=== PATIENT | male | born 1945 | race Caucasian/White ===

== ENCOUNTER 2017-05-03 11:18 | Inpatient (IN) | payer MEDICARE ==
[~2017-05-03] VITALS: Ht 182.9 cm; Wt 70.5 kg
[2017-05-03 11:49] LABS: BASOPHIL 0.2 % (0-2); EOSINOPHIL 0.3 % (0-7); HCT 32.7 % (42.0-52.0); HGB 10.8 g/dl (13.2-18.0); LYMPHOCYTE 8.4 % (15-48); MCH 34.6 pg (25.0-31.0); MCV 104.8 fL (78.0-100.0); MONOCYTE 9.5 % (0-12); PLT 150 K/uL (150-400); RBC 3.12 M/uL (4.70-6.00); RDW 15.7 % (11.5-14.0); WBC 9.1 K/uL (4.0-10.5)
[2017-05-03 12:05] LABS: ALBUMIN 3.5 g/dL (3.4-4.8); BILIRUBIN - TOTAL 0.3 mg/dL (0.1-1.0); CREATININE 3.2 mg/dL (0.7-1.2); GLOBULIN (CALCULATION) 2.7 g/dL (2.2-4.2); POTASSIUM 4.4 mmol/L (3.5-5.1); TOTAL PROTEIN 6.2 g/dL (6.4-8.3); TROPONIN T 0.097 ng/mL
[2017-05-03 12:16] LABS: NEUTROPHIL 81.6 % (41-80)
[2017-05-03 13:11] LABS: BILIRUBIN NEGATIVE (NEGATIVE); BLOOD 1+ Ery/uL (NEGATIVE); CLARITY CLEAR (CLEAR); COLOR YELLOW (YELLOW); GLUCOSE (U) 2+ mg/dL (NORMAL); KETONE (U) NEGATIVE (NEGATIVE); LEUKOCYTES NEGATIVE Leu/uL (NEGATIVE); NITRITE NEGATIVE (NEGATIVE); PROTEIN 1+ mg/dL (NEGATIVE); SPECIFIC GRAVITY 1.015 (1.001-1.030); UROBILINOGEN 0.2 mg/dL (0.2-1.0)
[2017-05-03 17:25] LABS: URINE CREATININE 31.3 mg/dL (40-278); URINE TOTAL PROTEIN-RANDOM 47.9 mg/dL
[2017-05-03 17:35] LABS: CREATININE 3.3 mg/dL (0.7-1.2); MAGNESIUM 0.72 mg/dL (1.40-2.10); PHOSPHORUS 11.7 mg/dL (2.7-4.5); POTASSIUM 4.3 mmol/L (3.5-5.1)
[2017-05-03 17:45] LABS: FT4 (FREE T4) 0.829 ng/dL (0.93-1.70); TSH (THYROID STIM HORMONE) 5.8 uIU/mL (0.270-4.200)
[2017-05-03 17:56] LABS: URINE POTASSIUM 11.15 mmol/L
[2017-05-03 17:56] LABS: FOLIC ACID (SERUM) > 20.0 ng/mL (5.6-45.8)
[2017-05-04 04:15] LABS: BASOPHIL 0.2 % (0-2); HCT 29.7 % (42.0-52.0); HGB 9.8 g/dl (13.2-18.0); LYMPHOCYTE 10.6 % (15-48); MCV 103.1 fL (78.0-100.0); MONOCYTE 11.3 % (0-12); MPV 10.6 fL (6.0-9.5); NEUTROPHIL 75.9 % (41-80); PLT 145 K/uL (150-400); RBC 2.88 M/uL (4.70-6.00); RDW 15.3 % (11.5-14.0)
[2017-05-04 04:46] LABS: CREATININE 3.5 mg/dL (0.7-1.2); MAGNESIUM 0.91 mg/dL (1.40-2.10); PHOSPHORUS 11.9 mg/dL (2.7-4.5); POTASSIUM 3.8 mmol/L (3.5-5.1)
[2017-05-05 03:59] LABS: HCT 30.4 % (42.0-52.0); HGB 10.2 g/dl (13.2-18.0); MCH 34.1 pg (25.0-31.0); MCHC 33.6 g/dL (32.0-36.0); MCV 101.7 fL (78.0-100.0); MPV 10.4 fL (6.0-9.5); RBC 2.99 M/uL (4.70-6.00); RDW 15.2 % (11.5-14.0); WBC 8.7 K/uL (4.0-10.5)
[2017-05-05 04:17] LABS: ALBUMIN 3.2 g/dL (3.4-4.8); BILIRUBIN - TOTAL 0.4 mg/dL (0.1-1.0); CREATININE 3.7 mg/dL (0.7-1.2); GLOBULIN (CALCULATION) 1.9 g/dL (2.2-4.2); MAGNESIUM 1.12 mg/dL (1.40-2.10); PHOSPHORUS 10.8 mg/dL (2.7-4.5); POTASSIUM 3.4 mmol/L (3.5-5.1); TOTAL PROTEIN 5.1 g/dL (6.4-8.3)
[2017-05-05 06:32] LABS: BILIRUBIN NEGATIVE (NEGATIVE); BLOOD 1+ Ery/uL (NEGATIVE); CLARITY CLEAR (CLEAR); COLOR YELLOW (YELLOW); GLUCOSE (U) NORMAL (NORMAL); KETONE (U) NEGATIVE (NEGATIVE); LEUKOCYTES NEGATIVE Leu/uL (NEGATIVE); NITRITE NEGATIVE (NEGATIVE); PROTEIN 2+ mg/dL (NEGATIVE); UROBILINOGEN 0.2 mg/dL (0.2-1.0)
[2017-05-06 03:37] LABS: HCT 28.1 % (42.0-52.0); HGB 9.2 g/dl (13.2-18.0); MCH 33.6 pg (25.0-31.0); MCHC 32.7 g/dL (32.0-36.0); MCV 102.6 fL (78.0-100.0); MPV 10.5 fL (6.0-9.5); RBC 2.74 M/uL (4.70-6.00); RDW 15.1 % (11.5-14.0); WBC 8.2 K/uL (4.0-10.5)
[2017-05-06 03:56] LABS: CREATININE 3.4 mg/dL (0.7-1.2); MAGNESIUM 1.36 mg/dL (1.40-2.10); PHOSPHORUS 9.8 mg/dL (2.7-4.5); POTASSIUM 3.1 mmol/L (3.5-5.1)
[2017-05-07 04:00] LABS: BASOPHIL 0.1 % (0-2); EOSINOPHIL 1.6 % (0-7); HCT 27.3 % (42.0-52.0); HGB 8.8 g/dl (13.2-18.0); LYMPHOCYTE 7.8 % (15-48); MCH 33.6 pg (25.0-31.0); MCHC 32.2 g/dL (32.0-36.0); MCV 104.2 fL (78.0-100.0); MONOCYTE 10.1 % (0-12); MPV 10.8 fL (6.0-9.5); NEUTROPHIL 80.4 % (41-80); PLT 146 K/uL (150-400); RBC 2.62 M/uL (4.70-6.00); RDW 14.9 % (11.5-14.0); WBC 7.4 K/uL (4.0-10.5)
[2017-05-07 04:16] LABS: ALBUMIN 2.6 g/dL (3.4-4.8); BILIRUBIN - TOTAL 0.4 mg/dL (0.1-1.0); CREATININE 3.1 mg/dL (0.7-1.2); GLOBULIN (CALCULATION) 2.4 g/dL (2.2-4.2); MAGNESIUM 1.56 mg/dL (1.40-2.10); PHOSPHORUS 8.9 mg/dL (2.7-4.5); POTASSIUM 3.7 mmol/L (3.5-5.1); TROPONIN T 0.119 ng/mL
[2017-05-08 06:35] LABS: POTASSIUM 3.6 mmol/L (3.5-5.1)
[2017-05-08] MEDS ORDERED: SODIUM BICARBO650 M1 PO (15:52)
[2017-05-08] MEDS ORDERED: FLOMAX 0.4 MG0.4 MG PO (16:23)
[2017-05-08] MEDS ORDERED: VITAMIN D50000 UNIT PO (16:23)
== END 2017-05-08 17:56 | disposition home or self-care (01) | DRG 683 ==
LOC: FER 11:18 → FTCU 14:39 → FMS 05-07 15:06
PROVIDERS: Emergency Medicine; Internal Medicine Nephrology; ADMIT Internal Medicine
DX: N17.9 Acute kidney failure, unspecified (principal); E87.2 Acidosis; E11.22 Type 2 diabetes mellitus with diabetic chronic kidney disease; I48.91 Unspecified atrial fibrillation; D64.9 Anemia, unspecified; I12.9 Hypertensive chronic kidney disease with stage 1 through stage 4 chronic kidney disease, or unspecified chronic kidney disease; N18.4 Chronic kidney disease, stage 4 (severe); E83.39 Other disorders of phosphorus metabolism; E83.42 Hypomagnesemia; E83.51 Hypocalcemia; J45.909 Unspecified asthma, uncomplicated; E78.5 Hyperlipidemia, unspecified; F17.210 Nicotine dependence, cigarettes, uncomplicated; R80.9 Proteinuria, unspecified; E55.9 Vitamin D deficiency, unspecified; N40.0 Benign prostatic hyperplasia without lower urinary tract symptoms; K59.00 Constipation, unspecified
CPT/HCPCS: 36415; 36600; 71010; 71020; 71250; 72128; 72146; 76770; 80048; 80053; 81001; 81003; 82009; 82306; 82570; 82607; 82728; 82746; 82803; 82962; 83036; 83520; 83540; 83550; 83605; 83690; 83735; 83880; 83970; 84100; 84133; 84145; 84152; 84156; 84300; 84439; 84443; 84484; 85025; 85044; 86021; 86038; 86334; 86335; 89190; 93005; 94010; 94640; 94667; 94668; 97116; 97162; 97165; 97530; 97535; J0610; J1940; J2916; J3420; J3475; J7060

== ENCOUNTER 2017-05-12 20:22 | Inpatient (IN) | payer MEDICARE ==
[~2017-05-12] VITALS: Ht 182.9 cm; Wt 69.9 kg
[~2017-05-12 20:22] MED LIST: FLOMAX 0.4 MG0.4 MG PO; SODIUM BICARBO650 M1 PO; VITAMIN D50000 UNIT PO
[2017-05-12 22:06] LABS: BASOPHIL 0.1 % (0-2); EOSINOPHIL 0.1 % (0-7); HCT 30.6 % (42.0-52.0); HGB 9.9 g/dl (13.2-18.0); LYMPHOCYTE 1.8 % (15-48); MCH 33.4 pg (25.0-31.0); MCHC 32.4 g/dL (32.0-36.0); MCV 103.4 fL (78.0-100.0); MONOCYTE 5.1 % (0-12); NEUTROPHIL 92.9 % (41-80); PLT 170 K/uL (150-400); RBC 2.96 M/uL (4.70-6.00); RDW 14.1 % (11.5-14.0)
[2017-05-12 22:22] LABS: BILIRUBIN - TOTAL 0.3 mg/dL (0.1-1.0); CREATININE 6.1 mg/dL (0.7-1.2); GLOBULIN (CALCULATION) 2.7 g/dL (2.2-4.2); POTASSIUM 4.6 mmol/L (3.5-5.1); TOTAL PROTEIN 5.7 g/dL (6.4-8.3)
[2017-05-12 22:39] LABS: BILIRUBIN NEGATIVE (NEGATIVE); BLOOD 2+ Ery/uL (NEGATIVE); CLARITY CLEAR (CLEAR); COLOR YELLOW (YELLOW); GLUCOSE (U) NORMAL (NORMAL); KETONE (U) NEGATIVE (NEGATIVE); LEUKOCYTES 3+ Leu/uL (NEGATIVE); NITRITE NEGATIVE (NEGATIVE); PROTEIN 2+ mg/dL (NEGATIVE); SPECIFIC GRAVITY 1.015 (1.001-1.030); UROBILINOGEN 0.2 mg/dL (0.2-1.0); pH 7.5 (5.0-9.0)
[2017-05-12 22:47] LABS: BACTERIA 3+; MUCOUS MODERATE; URINARY WBC 20-50
[2017-05-13 04:44] LABS: URINE CREATININE 64.3 mg/dL (40-278)
[2017-05-13 05:08] LABS: BASOPHIL 0.1 % (0-2); EOSINOPHIL 0.1 % (0-7); HCT 26.6 % (42.0-52.0); HGB 8.6 g/dl (13.2-18.0); LYMPHOCYTE 4.9 % (15-48); MCH 33.9 pg (25.0-31.0); MCHC 32.3 g/dL (32.0-36.0); MCV 104.7 fL (78.0-100.0); MONOCYTE 8.1 % (0-12); MPV 10.5 fL (6.0-9.5); NEUTROPHIL 86.8 % (41-80); PLT 147 K/uL (150-400); RBC 2.54 M/uL (4.70-6.00); WBC 11.5 K/uL (4.0-10.5)
[2017-05-13 05:19] LABS: INR 1.44 (0.9-1.2); PROTHROMBIN TIME 17.1 SECONDS (11.7-14.0); PTT 32.6 SECONDS (23.2-31.4)
[2017-05-13 05:28] LABS: CKMB 4.24 ng/mL (0.97-4.94)
[2017-05-13 05:29] LABS: ALBUMIN 2.5 g/dL (3.4-4.8); BILIRUBIN - TOTAL 0.2 mg/dL (0.1-1.0); GLOBULIN (CALCULATION) 2.4 g/dL (2.2-4.2); MAGNESIUM 1.26 mg/dL (1.40-2.10); PHOSPHORUS 10.7 mg/dL (2.7-4.5); POTASSIUM 4.7 mmol/L (3.5-5.1); TOTAL PROTEIN 4.9 g/dL (6.4-8.3)
[2017-05-13 05:30] LABS: TROPONIN T 0.194 ng/mL
== END 2017-05-13 11:58 | disposition other institution (70) | DRG 683 ==
LOC: FER 20:22 → FTCU 05-13 01:05
PROVIDERS: Emergency Medicine Emergency Medical Services; ADMIT Internal Medicine
DX: I12.9 Hypertensive chronic kidney disease with stage 1 through stage 4 chronic kidney disease, or unspecified chronic kidney disease (principal); N17.9 Acute kidney failure, unspecified; E87.2 Acidosis; N18.4 Chronic kidney disease, stage 4 (severe); I48.92 Unspecified atrial flutter; E11.22 Type 2 diabetes mellitus with diabetic chronic kidney disease; K86.1 Other chronic pancreatitis; N13.4 Hydroureter; R53.1 Weakness; E03.9 Hypothyroidism, unspecified; J45.909 Unspecified asthma, uncomplicated; F17.210 Nicotine dependence, cigarettes, uncomplicated; E78.5 Hyperlipidemia, unspecified; Z79.899 Other long term (current) drug therapy
CPT/HCPCS: 36415; 36600; 71010; 76705; 80053; 81001; 82550; 82553; 82570; 82803; 83605; 83690; 83735; 84100; 84300; 84484; 85014; 85018; 85025; 85610; 85730; 86403; 87040; 87076; 87077; 87088; 87186; 89190; 93005; 94010; J0885; J1956